=== PATIENT | female | born 1965 | race Caucasian/White ===

== ENCOUNTER 2023-05-15 00:23 | Emergency (ER) | payer OTHER, SELFPAY ==
[2023-05-15] VITALS (19 sets, daily range): BP systolic 128–155; BP diastolic 75–99; PULSE 68–86; RESP 15–21; TEMP 36.5–36.8; O2SAT 94–99
--- NOTE | ~2023-05-15 | CT_ITS ---
EXAMINATION: CT chest abdomen pelvis w con DATE: 05/15/2023 01:54 INDICATION: Chest pain and rectal bleeding TECHNIQUE: Transaxial computed tomographic images of the chest, abdomen, and pelvis were obtained aft er the administration of 100 cc of Omnipaque 350 intravenous contrast. The dose-length product (DLP) was 1347.03 mGy-cm. Automated exposure control and iterative reconstruction technique were employed. COMPARISON: None FINDINGS: CHEST CT: There is a small right pleural effusion. There is mild atelectasis of the right lung base. There is n o pneumothorax. No pathologically enlarged thoracic lymph nodes are identified. The heart size is nor mal. There is mild thoracic spondylosis. There appear to be multiple pleural-based calcifications in the right lung base of unclear etiology. ABDOMEN/PELVIS CT: There is focal fatty infiltration of the liver near the ligamentum teres. The spleen, pancreas, gallb ladder, and adrenal glands are normal. The kidneys are unremarkable. No pathologically enlarged abdom inal or pelvic lymph nodes are identified. There is calcified atherosclerosis of the aorta and many o f the other arteries. No free intraperitoneal gas or evidence of bowel obstruction. IMPRESSION: 1. Small right pleural effusion and mild atelectasis of the right lung base. 2. No acute findings of the abdomen or pelvis. Reviewed, dictated and finalized at location F.
[2023-05-15 01:01] LABS: Basophils Absolute Auto 0.1 K/mm3 (0.0-0.1); Basophils Percent Auto 0.6 % (0.2-1.2); Eosinophils Absolute Auto 0.4 K/mm3 (0-0.3); Eosinophils Percent Auto 3.9 % (0-4.4); Hematocrit 38.8 % (37.0-47.0); Hemoglobin 12.2 g/dL (12.0-15.0); Immature Granulocyte Absolute 0.03 K/mm3 (0.00-0.031); Immature Granulocyte Percent A 0.3 % (0-0.5); Lymphocytes Absolute Auto 2.74 K/mm3 (0.9-3.2); Lymphocytes Percent Auto 29.1 % (18.3-44.2); Mean Corpuscular HGB Conc 31.4 g/dl (32-36); Mean Corpuscular Hemoglobin 30.6 pg (26-34); Mean Corpuscular Volume 97.2 fl (80-100); Mean Platelet Volume 10.5 fl (7.4-10.4); Monocytes Absolute Auto 0.8 K/mm3 (0.1-0.6); Monocytes Percent Auto 8.8 % (2.6-8.5); Neutrophils Absolute Auto 5.4 K/mm3 (1.3-6.7); Neutrophils Percent Auto 57.3 % (45.5-73.1); Platelet Count Result 358 k/mm3 (150-375); Red Blood Count 3.99 M/mm3 (4.2-5.4); Red Cell Distribution Width 13.2 % (11.5-14.5); White Blood Count 9.4 K/mm3 (4.5-10.0)
--- NOTE | 2023-05-15 01:11 | ED.GIBLEED ---
HPI - GI Bleed General Chief complaint: GI Bleed Stated complaint: rectal bleed Time Seen by Provider: 05/15/23 00:46 History of Present Illness HPI Narrative: Patient is a 58-year-old female with history of recent diaphragmatic surgery in [place], status post chest tube placement with removal approximately 10 days ago here with GI bleed. Patient states that today she had 3 separate episodes of rectal bleeding including small clots. She denies any pain with defecation. She does note that over the last few days she has been having some shortness of breath, tingly feeling in her chest and down her bilateral arms. She additionally notes some right upper quadrant pain. her last colonoscopy was about 5 years ago, denies any abnormalities, is scheduled for a repeat colonoscopy in the near future. Liliana she contacted her surgeon's office In [place] and they recommended that she come into the emergency department for evaluation. She denies any fever or chills. No urinary symptoms. Related Data Allergies Allergy/AdvReac Type Severity Reaction Status Date / Time No Known Allergies Allergy Verified 05/15/23 00:29 Review of Systems Review of Systems: All systems reviewed & are unremarkable except as noted in HPI and below Exam Narrative: GENERAL: Well-appearing, well-nourished, and in no acute distress. HEAD: Normocephalic, atraumatic. EYES: PERRLA and EOMI. ENT: Nares clear. Mucous membranes moist. NECK: Supple. CHEST: Clear to auscultation. No respiratory distress. Clean and dry surgical scars over her right posterior chest wall and right flank. HEART: Regular rate and rhythm. Normal peripheral pulses. ABDOMEN: Soft, nontender, nondistended. No rebound or guarding. EXTREMITIES: Normal range of motion. No edema. SKIN: Warm, dry, no rash. NEURO: No focal deficits. Alert and oriented x3. PSYCH: Normal mood and affect. Course Course Emergency Course: Chart review performed. Patient here with rectal bleeding since 4PM. No prior visits in our system. Triage vitals normal. Patient seen evaluated, nontoxic appearing, broad differentials given she has some thoracic and chest symptoms as well as her GI bleed. Will do CT chest abdomen pelvis as well as basic lab work to evaluate for possible anemia. Cardiac workup ordered. Lab work and imaging reviewed. CBC grossly normal, mild hypokalemia, electrolytes otherwise within normal limits. Normal renal function, troponin negative x2, normal LFTs. CT read shows small right pleural effusion, dependent right lower lobe bronchiectasis, normal appendix, no bowel obstruction, colonic diverticulosis without diverticulitis, soft tissue gas along the right chest wall of unknown etiology. Patient updated on all of her results. I believe most these findings are likely attributed to her postoperative state. Will provide her with report and disc of her imaging that she can follow with her surgeon. No intra-abdominal process that should require hospitalization for her GI bleed. She is advised to follow closely with her primary care doctor and her team out of state. She can return to the emergency department at any time if her symptoms worsen. The results of pertinent diagnostic studies and exam findings were discussed. The patient?s provisional diagnosis and plan of care were discussed with the patient and present family. The patient and/or present family expressed understanding of the diagnosis and plan. The nurse was instructed to provide written instructions and appropriate follow-up information. The patient understands their need and responsibility to obtain additional follow-up as instructed. The risks of medications administered and prescribed were discussed with the patient and family present. Vital Signs Vital signs: Vital Signs Temperature 98.2 F 05/15/23 00:30 Pulse Rate 73 05/15/23 00:30 Respiratory Rate 20 05/15/23 00:30 Blood Pressure 155/95 H 05/15/23 00:30
[2023-05-15 01:13] LABS: Alanine Aminotransferase 23 U/L (6-35); Albumin Level 4.2 g/dL (3.5-5.1); Alkaline Phosphatase 67 U/L (38-126); Anion Gap 10 mmol/L (8-16); Aspartate Amino Transferase 24 U/L (14-36); Bilirubin,Total 0.5 mg/dL (0.2-1.3); Blood Urea Nitrogen 15 mg/dL (7-17); Calcium 8.6 mg/dL (8.4-10.2); Carbon Dioxide 26 mmol/L (22-30); Chloride 103 mmol/L (98-107); Estimated CRCL calculation 104 ml/min; Estimated Glomerular Filt Rate > 60; Glucose 100 mg/dL (65-110); Sodium 139 mmol/L (137-145)
[2023-05-15 01:28] LABS: INR 0.9; Prothrombin Time 12.6 Seconds (11.1-14.7)
[2023-05-15 01:29] LABS: Partial Thromboplastin Time 25.6 SECONDS (22.3-36.8)
--- NOTE | 2023-05-15 01:29 | ECG_ITS ---
Measurements Intervals [place] Rate: 71 P: 28 WA: 141 QRS: -1 QRSD: 104 T: 42 QT: 419 QTc: 455 Interpretive Statements SINUS RHYTHM BORDERLINE ST-T WAVE ABNORMALITY- HIGH LATERAL LEADS BORDERLINE ECG NO PREVIOUS ECG AVAILABLE FOR COMPARISON Electronically Signed On 05-15-2023 9:28:05 CDT by Long Hough D.O.
[2023-05-15 02:05] LABS: Troponin I < 0.012 ng/mL (0.000-0.034)
[2023-05-15 05:07] LABS: Troponin I < 0.012 ng/mL (0.000-0.034)
== END 2023-05-15 05:41 | disposition home or self-care (01) ==
PROVIDERS: Emergency Provider Student in an Organized Health Care Education/Training Program
DX: K62.5 Hemorrhage of anus and rectum (principal); R07.9 Chest pain, unspecified; R94.31 Abnormal electrocardiogram [ECG] [EKG]; J90 Pleural effusion, not elsewhere classified
CPT/HCPCS: 36415; 71260; 74177; 80053; 84484; 85025; 85610; 85730; 86850; 86900; 86901; 93005; 99284; Q9967